=== PATIENT | male | born 1990 | race Caucasian/White ===

== ENCOUNTER 2016-07-02 04:33 | Emergency (ER) | payer OTHER ==
[~2016-07-02] VITALS: Ht 172.7 cm; Wt 74.8 kg
[~2016-07-02 04:33] MED LIST: ACYCLOVIR800 MG PO; AMOXICILLIN500 MG PO; ANAPROX DS550 MG PO; AUGMENTIN 875875 MG PO; CLARITIN10 MG PO; CLEOCIN150 MG PO; CYCLOBENZAPRINE10 MG PO; DARVOCET N 1001 TAB PO; DOXYCYCLINE MO100 MG PO; EES400 MG PO; FLEXERIL10 MG PO; HYDROCODONE BIT1 T11 PO; KEFLEX500 MG PO; LOMOTIL 0.025 M1 TA1 PO; MEDROL DOSEPAK4 MG PO; MOTRIN800 MG PO; Motrin,Rufen800 MG PO; NAPROSYN500 MG PO; NKHM; NORCO 5-325 TA1 EACH PO; PEN-VEE K500 MG PO; PENICILLIN VK500 MG PO; PEPCID20 MG PO; ROBAXIN750 MG PO; SEPTRA DS 800 M1 TAB PO; SUBOXONE 8 MG-1 EACH SL; TYLENOL325 M1 PO; ULTRAM50 MG PO; VALTREX500 MG PO; VICODIN 500 MG-1 TAB PO; VOLTAREN50 M1 PO
[2016-07-02] MEDS ORDERED: Motrin,Rufen800 MG PO (06:10)
[2016-07-02] MEDS ORDERED: ZOFRAN ODT4 MG SL (06:10)
[2016-07-02 06:28] VITALS: BP 118/74
== END 2016-07-02 06:36 | disposition home or self-care (01) ==
LOC: ED 04:33
DX: G43.919 Migraine, unspecified, intractable, without status migrainosus (principal); F17.200 Nicotine dependence, unspecified, uncomplicated

== ENCOUNTER → 2016-07-23 | Outpatient (CLI) | payer OTHER ==
[~2016-07-23] MED LIST changes: +ZOFRAN ODT4 MG SL
[2016-07-23 15:11] LABS: BASO % 0.3 % (0.0-1.0); EOS # 0.1 10*3/uL (0.0-0.4); EOS % 0.9 % (1.0-4.0); HEMATOCRIT 41.3 % (42.0-52.0); HEMOGLOBIN 14.2 g/dl (14.0-18.0); LYMPH # 3.3 10*3/uL (1.3-4.4); LYMPH % 30.8 % (27.0-41.0); MEAN CELL VOLUME 85.3 fl (80.0-94.0); MEAN CORPUSCULAR HGB 29.3 pg (27.0-31.0); MEAN CORPUSCULAR HGB CONC 34.4 g/dl (33.0-37.0); MEAN PLATELET VOLUME 10.1 fl (9.6-12.3); MONO # 0.6 10*3/uL (0.1-1.0); MONO % 5.4 % (3.0-9.0); NEUT # 6.6 10*3/uL (2.3-7.9); NEUT % 62.3 % (47.0-73.0); PLATELET COUNT AUTOMATED 201 10*3/uL (130-400); RED BLOOD COUNT 4.84 10*6/uL (4.50-5.90); WHITE BLOOD COUNT 10.7 10*3/uL (4.8-10.8)
[2016-07-23 15:27] LABS: HEMOGLOBIN A1c 5.5 % (4.8-5.6)
[2016-07-23 15:44] LABS: ALBUMIN 4.1 gm/dl (3.1-4.5); ALKALINE PHOSPHATASE 72 U/L (45-117); BILIRUBIN, TOTAL 0.3 mg/dl (0.2-1.0); BUN 16 mg/dl (7-24); CARBON DIOXIDE 29 mmol/L (21-32); CHLORIDE 109 mmol/L (98-107); CHOLESTEROL 180 mg/dL (<200); CPK 141 U/L (39-308); EST GLOM FILT AFRICAN AMERICAN > 60 ml/min; GLUCOSE 124 mg/dL (65-99); HDL CHOLESTEROL 49 mg/dl (40-60); LDL CHOLESTEROL 86 mg/dL (9-159); POTASSIUM 4.2 mmol/L (3.5-5.1); SGOT/AST 27 IU/L (3-35); SGPT/ALT 31 U/L (12-78); SODIUM 142 mmol/L (136-145); TOTAL PROTEIN 7.4 gm/dL (6.4-8.2); TRIGLYCERIDES 226 mg/dl (<150); VLDL CHOLESTEROL 45 mg/dL (6-40)
[2016-07-24 17:11] LABS: CREATININE, RANDOM URINE 280.3 mg/dL (Not Estab.)
[2016-07-26 06:36] LABS: METANEPH-CREAT RATIO 0.4 (0.0-1.0)
== END | disposition home or self-care (01) ==
LOC: LAB 14:31
PROVIDERS: Pediatrics
DX: I10 Essential (primary) hypertension (principal)

== ENCOUNTER 2016-09-14 17:05 | Inpatient (IN) | payer OTHER ==
[~2016-09-14] VITALS: Ht 172.7 cm; Wt 79.0 kg
[2016-09-14] MEDS ORDERED: LISINOPRIL10 M1 PO (18:34)
[2016-09-14 18:37] VITALS: BP 125/71
[2016-09-14 19:07] LABS: BASO % 0.2 % (0.0-1.0); EOS # 0.2 10*3/uL (0.0-0.4); EOS % 1.8 % (1.0-4.0); HEMATOCRIT 41.8 % (42.0-52.0); HEMOGLOBIN 14.2 g/dl (14.0-18.0); LYMPH % 45.3 % (27.0-41.0); MEAN CELL VOLUME 85.1 fl (80.0-94.0); MEAN CORPUSCULAR HGB 28.9 pg (27.0-31.0); MEAN PLATELET VOLUME 10.1 fl (9.6-12.3); MONO # 0.6 10*3/uL (0.1-1.0); MONO % 5.3 % (3.0-9.0); NEUT # 5.2 10*3/uL (2.3-7.9); NEUT % 47.1 % (47.0-73.0); PLATELET COUNT AUTOMATED 181 10*3/uL (130-400); RED BLOOD COUNT 4.91 10*6/uL (4.50-5.90); RED CELL DISTRI WIDTH 12.9 % (0-14.5)
[2016-09-14 19:08] LABS: URINE AMPHETAMINES < 1000 (1000ng/ml); URINE BARBITURATES < 200 (200ng/ml); URINE COCAINE > 300 (300ng/ml)
[2016-09-14 19:10] LABS: BILIRUBIN NEGATIVE (NEGATIVE); BLOOD NEGATIVE (NEGATIVE); CLARITY CLEAR (CLEAR); COLOR YELLOW (YELLOW); GLUCOSE NEGATIVE (NEGATIVE); KETONE NEGATIVE (NEGATIVE); LEUKO ESTERASE NEGATIVE (NEGATIVE); NITRITE NEGATIVE (NEGATIVE); PH 5.5 (5.0-9.0); PROTEIN NEGATIVE (NEGATIVE); SPECIFIC GRAVITY <= 1.005 (1.005-1.030); UROBILINOGEN 0.2 E.U./dl (0.2-1.0)
[2016-09-14 19:19] LABS: BACTERIA TRACE; EPITHELIAL CELLS 0-2; RBC 0-2 rbc/hpf (0-2); URINE REFLEX COMMENT NO (NO); WBC 0-2 wbc/hpf (0-5)
[2016-09-14 19:24] LABS: BILIRUBIN, TOTAL 0.1 mg/dl (0.2-1.0); BUN 8 mg/dl (7-24); CARBON DIOXIDE 27 mmol/L (21-32); CHLORIDE 103 mmol/L (98-107); EST GLOM FILT AFRICAN AMERICAN > 60 ml/min; GLUCOSE 116 mg/dL (65-99); POTASSIUM 3.8 mmol/L (3.5-5.1); SGOT/AST 25 IU/L (3-35); SGPT/ALT 28 U/L (12-78); SODIUM 141 mmol/L (136-145); TOTAL PROTEIN 7.3 gm/dL (6.4-8.2)
[2016-09-14 19:30] LABS: ALKALINE PHOSPHATASE 76 U/L (45-117)
[2016-09-14 20:15] VITALS: BP 137/71
[2016-09-14] MEDS ORDERED: IBU800 MG PO (20:59)
[2016-09-15] VITALS: BP 120/77
[2016-09-15 08:00] VITALS: BP 111/67
== END 2016-09-15 11:47 | disposition home or self-care (01) | DRG 897 ==
LOC: ED 17:05 → 4E 19:20 → EDHOLD 19:20 → 4E 19:43
PROVIDERS: Nurse Practitioner Family
DX: F11.23 Opioid dependence with withdrawal (principal); I10 Essential (primary) hypertension; G25.81 Restless legs syndrome; E78.5 Hyperlipidemia, unspecified; F41.9 Anxiety disorder, unspecified; F17.210 Nicotine dependence, cigarettes, uncomplicated; D72.829 Elevated white blood cell count, unspecified; R73.9 Hyperglycemia, unspecified; F14.10 Cocaine abuse, uncomplicated; F15.10 Other stimulant abuse, uncomplicated; F13.230 Sedative, hypnotic or anxiolytic dependence with withdrawal, uncomplicated; Z82.5 Family history of asthma and other chronic lower respiratory diseases; Z71.6 Tobacco abuse counseling

== ENCOUNTER 2016-10-05 17:02 | Emergency (ER) | payer OTHER ==
[~2016-10-05] VITALS: Wt 77.1 kg
[~2016-10-05 17:02] MED LIST changes: +IBU800 MG PO; +LISINOPRIL10 M1 PO
[2016-10-05 17:59] LABS: BASO % 0.3 % (0.0-1.0); EOS # 0.1 10*3/uL (0.0-0.4); EOS % 0.9 % (1.0-4.0); HEMATOCRIT 40.1 % (42.0-52.0); HEMOGLOBIN 13.4 g/dl (14.0-18.0); LYMPH # 3.4 10*3/uL (1.3-4.4); LYMPH % 36.8 % (27.0-41.0); MEAN CELL VOLUME 87.4 fl (80.0-94.0); MEAN CORPUSCULAR HGB 29.2 pg (27.0-31.0); MEAN CORPUSCULAR HGB CONC 33.4 g/dl (33.0-37.0); MEAN PLATELET VOLUME 9.9 fl (9.6-12.3); MONO # 0.5 10*3/uL (0.1-1.0); MONO % 5.3 % (3.0-9.0); NEUT # 5.3 10*3/uL (2.3-7.9); NEUT % 56.4 % (47.0-73.0); PLATELET COUNT AUTOMATED 192 10*3/uL (130-400); RED BLOOD COUNT 4.59 10*6/uL (4.50-5.90); RED CELL DISTRI WIDTH 13.1 % (0-14.5); WHITE BLOOD COUNT 9.3 10*3/uL (4.8-10.8)
[2016-10-05 18:08] LABS: INTERNATIONAL NORM RATIO 1.1 (2.0-3.5); PROTHROMBIN TIME 11.6 SECONDS (9.0-12.4)
[2016-10-05 18:14] LABS: ALBUMIN 3.3 gm/dl (3.1-4.5); ALKALINE PHOSPHATASE 60 U/L (45-117); BILIRUBIN, TOTAL 0.2 mg/dl (0.2-1.0); BUN 10 mg/dl (7-24); CARBON DIOXIDE 26 mmol/L (21-32); CHLORIDE 108 mmol/L (98-107); CKMB 0.7 ng/ml (0.5-3.6); CPK 102 U/L (39-308); EST GLOM FILT AFRICAN AMERICAN > 60 ml/min; GLUCOSE 117 mg/dL (65-99); POTASSIUM 3.7 mmol/L (3.5-5.1); SGOT/AST 18 IU/L (3-35); SGPT/ALT 24 U/L (12-78); SODIUM 139 mmol/L (136-145); TOTAL PROTEIN 6.4 gm/dL (6.4-8.2)
[2016-10-05 18:16] LABS: C-REACTIVE PROTEIN < 0.29 MG/DL (0-0.3); TROPONIN I < 0.015 ng/ml (<0.045)
[2016-10-05 19:54] VITALS: BP 113/65
[2016-10-05] MEDS ORDERED: KETOROLAC10 MG PO (20:09)
== END 2016-10-05 20:26 | disposition home or self-care (01) ==
LOC: ED 17:02
PROVIDERS: Emergency Medicine
DX: S20.211A Contusion of right front wall of thorax, initial encounter (principal); S00.03XA Contusion of scalp, initial encounter; I10 Essential (primary) hypertension; E78.5 Hyperlipidemia, unspecified; F12.10 Cannabis abuse, uncomplicated; F11.10 Opioid abuse, uncomplicated; Z87.891 Personal history of nicotine dependence; W20.8XXA Other cause of strike by thrown, projected or falling object, initial encounter; Y93.89 Activity, other specified; Y92.810 Car as the place of occurrence of the external cause; Y99.8 Other external cause status

== ENCOUNTER 2016-11-09 00:09 | Emergency (ER) | payer OTHER ==
[~2016-11-09] VITALS: Ht 167.6 cm; Wt 72.6 kg
[~2016-11-09 00:09] MED LIST changes: +KETOROLAC10 MG PO
[2016-11-09 00:31] LABS: BASO % 0.3 % (0.0-1.0); EOS # 0.1 10*3/uL (0.0-0.4); HEMATOCRIT 39.8 % (42.0-52.0); HEMOGLOBIN 13.3 g/dl (14.0-18.0); LYMPH # 4.2 10*3/uL (1.3-4.4); LYMPH % 39.5 % (27.0-41.0); MEAN CELL VOLUME 85.4 fl (80.0-94.0); MEAN CORPUSCULAR HGB 28.5 pg (27.0-31.0); MEAN CORPUSCULAR HGB CONC 33.4 g/dl (33.0-37.0); MEAN PLATELET VOLUME 9.4 fl (9.6-12.3); MONO # 0.5 10*3/uL (0.1-1.0); MONO % 4.9 % (3.0-9.0); NEUT # 5.7 10*3/uL (2.3-7.9); NEUT % 54.1 % (47.0-73.0); PLATELET COUNT AUTOMATED 203 10*3/uL (130-400); RED BLOOD COUNT 4.66 10*6/uL (4.50-5.90); RED CELL DISTRI WIDTH 12.5 % (0-14.5); WHITE BLOOD COUNT 10.6 10*3/uL (4.8-10.8)
[2016-11-09 00:47] LABS: ALBUMIN 3.6 gm/dl (3.1-4.5); ALKALINE PHOSPHATASE 74 U/L (45-117); BUN 10 mg/dl (7-24); CHLORIDE 106 mmol/L (98-107); CREATININE 0.85 mg/dL (0.70-1.30); SGOT/AST 26 IU/L (3-35); SGPT/ALT 24 U/L (12-78); SODIUM 139 mmol/L (136-145)
[2016-11-09 00:49] LABS: ACETAMINOPHEN (TYLENOL) < 2.0 ug/ml (10-30); ETHYL ALCOHOL < 3.0 mg/dl (<3)
[2016-11-09 01:01] LABS: BILIRUBIN NEGATIVE (NEGATIVE); BLOOD NEGATIVE (NEGATIVE); CLARITY CLEAR (CLEAR); COLOR YELLOW (YELLOW); GLUCOSE NEGATIVE (NEGATIVE); KETONE NEGATIVE (NEGATIVE); LEUKO ESTERASE NEGATIVE (NEGATIVE); NITRITE NEGATIVE (NEGATIVE); PH 5.5 (5.0-9.0); UROBILINOGEN 0.2 E.U./dl (0.2-1.0)
[2016-11-09 01:10] LABS: EPITHELIAL CELLS 0-5; RBC 0-2 rbc/hpf (0-2)
[2016-11-09 01:11] LABS: URINE AMPHETAMINES < 1000 (1000ng/ml); URINE BARBITURATES < 200 (200ng/ml); URINE BENZODIAZEPINES < 200 (200ng/ml); URINE CANNABINOIDS (THC) < 50 (50ng/ml); URINE COCAINE < 300 (300ng/ml); URINE METHADONE < 300 (300ng/ml); URINE OPIATES < 300 (300ng/ml); URINE PHENCYCLIDINE < 25 (25ng/ml)
[2016-11-10 15:45] VITALS: BP 115/72
== END 2016-11-10 16:06 | disposition home or self-care (01) ==
LOC: ED 00:09
PROVIDERS: Student in an Organized Health Care Education/Training Program
DX: S51.812A Laceration without foreign body of left forearm, initial encounter (principal); R45.851 Suicidal ideations; R51 Headache; I10 Essential (primary) hypertension; F14.10 Cocaine abuse, uncomplicated; E78.5 Hyperlipidemia, unspecified; X58.XXXA Exposure to other specified factors, initial encounter; Y93.9 Activity, unspecified; Y92.9 Unspecified place or not applicable; Y99.9 Unspecified external cause status

== ENCOUNTER 2017-06-11 15:44 | Inpatient (IN) | payer OTHER ==
[~2017-06-11] VITALS: Ht 172.7 cm; Wt 76.8 kg
[2017-06-11 15:50] VITALS: BP 128/85
[2017-06-11] MEDS ORDERED: BUPREN/NALOX SUB 8-2 (15:52)
[2017-06-11 16:04] LABS: BILIRUBIN NEGATIVE (NEGATIVE); BLOOD NEGATIVE (NEGATIVE); CLARITY CLOUDY (CLEAR); COLOR YELLOW (YELLOW); GLUCOSE NEGATIVE (NEGATIVE); KETONE 1+ (NEGATIVE); LEUKO ESTERASE NEGATIVE (NEGATIVE); NITRITE NEGATIVE (NEGATIVE); PH 8.5 (5.0-9.0); UROBILINOGEN 0.2 E.U./dl (0.2-1.0)
[2017-06-11 16:16] LABS: BACTERIA 2+
[2017-06-11 16:19] LABS: URINE AMPHETAMINES > 1000 (1000ng/ml); URINE BARBITURATES > 200 (200ng/ml); URINE BENZODIAZEPINES < 200 (200ng/ml); URINE CANNABINOIDS (THC) < 50 (50ng/ml); URINE COCAINE > 300 (300ng/ml); URINE METHADONE < 300 (300ng/ml); URINE OPIATES > 300 (300ng/ml); URINE PHENCYCLIDINE < 25 (25ng/ml)
[2017-06-11 17:10] VITALS: BP 122/74
[2017-06-11 17:12] LABS: BASO % 0.2 % (0.0-1.0); EOS % 0.2 % (1.0-4.0); HEMATOCRIT 45.1 % (42.0-52.0); HEMOGLOBIN 15.2 g/dl (14.0-18.0); LYMPH # 1.9 10*3/uL (1.3-4.4); LYMPH % 17.7 % (27.0-41.0); MEAN CELL VOLUME 83.7 fl (80.0-94.0); MEAN CORPUSCULAR HGB 28.2 pg (27.0-31.0); MEAN CORPUSCULAR HGB CONC 33.7 g/dl (33.0-37.0); MEAN PLATELET VOLUME 9.9 fl (9.6-12.3); MONO # 0.3 10*3/uL (0.1-1.0); MONO % 2.4 % (3.0-9.0); NEUT # 8.4 10*3/uL (2.3-7.9); NEUT % 79.1 % (47.0-73.0); PLATELET COUNT AUTOMATED 227 10*3/uL (130-400); RED BLOOD COUNT 5.39 10*6/uL (4.50-5.90); RED CELL DISTRI WIDTH 13.1 % (0-14.5); WHITE BLOOD COUNT 10.6 10*3/uL (4.8-10.8)
[2017-06-11 17:29] LABS: INTERNATIONAL NORM RATIO 1.1 (2.0-3.5)
[2017-06-11 17:33] LABS: ALKALINE PHOSPHATASE 71 U/L (45-117); BUN 8 mg/dl (7-24); CHLORIDE 107 mmol/L (98-107); POTASSIUM 3.4 mmol/L (3.5-5.1); SGOT/AST 23 IU/L (3-35); SGPT/ALT 30 U/L (12-78); SODIUM 140 mmol/L (136-145); TOTAL PROTEIN 7.8 gm/dL (6.4-8.2)
[2017-06-11 17:35] LABS: ACETAMINOPHEN (TYLENOL) < 2.0 ug/ml (10-30); ETHYL ALCOHOL < 3.0 mg/dl (<3); TROPONIN I < 0.015 ng/ml (<0.045)
[2017-06-11 17:46] VITALS: BP 130/76
[2017-06-11 20:00] VITALS: BP 119/65
[2017-06-12] VITALS: BP 115/60
[2017-06-12 04:00] VITALS: BP 115/60
[2017-06-12 08:00] VITALS: BP 111/54
[2017-06-12 12:00] VITALS: BP 101/53
[2017-06-12 16:00] VITALS: BP 110/52
[2017-06-12 20:00] VITALS: BP 118/52
[2017-06-13] VITALS: BP 103/52
[2017-06-13 08:00] VITALS: BP 110/58
[2017-06-13 12:00] VITALS: BP 116/76
== END 2017-06-13 15:28 | disposition left against medical advice (07) | DRG 894 ==
LOC: ED 15:44 → EDHOLD 16:50 → 5E 17:20
PROVIDERS: Physician Assistant; Student in an Organized Health Care Education/Training Program
DX: F11.23 Opioid dependence with withdrawal (principal); E83.41 Hypermagnesemia; E78.5 Hyperlipidemia, unspecified; E87.6 Hypokalemia; F13.10 Sedative, hypnotic or anxiolytic abuse, uncomplicated; F14.10 Cocaine abuse, uncomplicated; F15.10 Other stimulant abuse, uncomplicated; R73.9 Hyperglycemia, unspecified; I10 Essential (primary) hypertension; D72.810 Lymphocytopenia; Z72.0 Tobacco use; Z71.6 Tobacco abuse counseling; Z82.5 Family history of asthma and other chronic lower respiratory diseases; Z81.8 Family history of other mental and behavioral disorders

== ENCOUNTER 2017-11-06 18:46 | Emergency (ER) | payer OTHER ==
[~2017-11-06] VITALS: Ht 172.7 cm; Wt 73.5 kg
[~2017-11-06 18:46] MED LIST changes: +BUPREN/NALOX SUB 8-2
[2017-11-06 18:47] VITALS: BP 127/80
[2017-11-06] MEDS ORDERED: NAPROSYN500 MG PO (19:01)
[2017-11-06] MEDS ORDERED: Tobrex Ophth S2.5 ML OPH (19:01)
[2017-11-18] MEDS ORDERED: TESSALON PERLE100 M1 PO (19:06)
[2017-11-18] MEDS ORDERED: PREDNISONE20 M1 PO (19:06)
[2017-11-18] MEDS ORDERED: AUGMENTIN 875875 MG PO (19:06)
== END 2017-11-06 19:27 | disposition home or self-care (01) ==
LOC: ED 18:46
DX: S05.01XA Injury of conjunctiva and corneal abrasion without foreign body, right eye, initial encounter (principal); R03.0 Elevated blood-pressure reading, without diagnosis of hypertension; F17.200 Nicotine dependence, unspecified, uncomplicated; X58.XXXA Exposure to other specified factors, initial encounter; Y93.89 Activity, other specified; Y92.89 Other specified places as the place of occurrence of the external cause; Y99.9 Unspecified external cause status

== ENCOUNTER 2017-11-23 23:13 | Emergency (ER) | payer OTHER ==
[~2017-11-23] VITALS: Ht 172.7 cm; Wt 72.6 kg
[~2017-11-23 23:13] MED LIST changes: +PREDNISONE20 M1 PO; +TESSALON PERLE100 M1 PO; +Tobrex Ophth S2.5 ML OPH
[2017-11-23 23:14] VITALS: BP 127/73
== END 2017-11-24 01:17 | disposition home or self-care (01) ==
LOC: ED 23:13
DX: S20.212A Contusion of left front wall of thorax, initial encounter (principal); E78.5 Hyperlipidemia, unspecified; I10 Essential (primary) hypertension; X58.XXXA Exposure to other specified factors, initial encounter; Y93.89 Activity, other specified; Y92.89 Other specified places as the place of occurrence of the external cause; Y99.8 Other external cause status

== ENCOUNTER 2018-09-08 20:05 | Emergency (ER) | payer OTHER ==
[~2018-09-08] VITALS: Ht 172.7 cm; Wt 78.0 kg
[2018-09-08 20:07] VITALS: BP 135/92
[2018-09-08] MEDS ORDERED: SEPTDS PO (20:19)
[2018-09-08] MEDS ORDERED: CEPHALEXIN500 M1 PO (20:19)
== END 2018-09-08 20:43 | disposition home or self-care (01) ==
LOC: ED 20:05
DX: L02.414 Cutaneous abscess of left upper limb (principal); F17.200 Nicotine dependence, unspecified, uncomplicated

== ENCOUNTER 2018-10-20 02:12 | Emergency (ER) | payer SELFPAY ==
[~2018-10-20] VITALS: Ht 172.7 cm; Wt 74.8 kg
[~2018-10-20 02:12] MED LIST changes: +CEPHALEXIN500 M1 PO; +SEPTDS PO
[2018-10-20 02:47] VITALS: BP 98/57
== END 2018-10-20 04:00 | disposition home or self-care (01) ==
LOC: ED 02:12
DX: G43.709 Chronic migraine without aura, not intractable, without status migrainosus (principal); I10 Essential (primary) hypertension; E78.5 Hyperlipidemia, unspecified; F17.200 Nicotine dependence, unspecified, uncomplicated; Z79.2 Long term (current) use of antibiotics

== ENCOUNTER 2019-01-02 08:19 | Emergency (ER) | payer OTHER ==
[~2019-01-02] VITALS: Ht 172.7 cm; Wt 72.6 kg
[2019-01-02 08:21] VITALS: BP 151/109
== END 2019-01-02 09:18 | disposition home or self-care (01) ==
LOC: ED 08:19
DX: K04.7 Periapical abscess without sinus (principal); E78.5 Hyperlipidemia, unspecified; I10 Essential (primary) hypertension; F17.200 Nicotine dependence, unspecified, uncomplicated; Z79.2 Long term (current) use of antibiotics

== ENCOUNTER 2019-01-25 01:35 | Emergency (ER) | payer OTHER ==
[~2019-01-25] VITALS: Ht 170.1 cm; Wt 73.5 kg
[2019-01-25 01:36] VITALS: BP 149/90
[2019-01-25] MEDS ORDERED: NAPROSYN EC375 MG PO (03:02)
== END 2019-01-25 03:50 | disposition home or self-care (01) ==
LOC: ED 01:35
DX: S96.911A Strain of unspecified muscle and tendon at ankle and foot level, right foot, initial encounter (principal); E78.5 Hyperlipidemia, unspecified; I10 Essential (primary) hypertension; G43.909 Migraine, unspecified, not intractable, without status migrainosus; F17.200 Nicotine dependence, unspecified, uncomplicated; X50.1XXA Overexertion from prolonged static or awkward postures, initial encounter; Y93.39 Activity, other involving climbing, rappelling and jumping off; Y92.098 Other place in other non-institutional residence as the place of occurrence of the external cause; Y99.8 Other external cause status

== ENCOUNTER 2019-08-09 10:31 | Emergency (ER) | payer OTHER ==
[~2019-08-09] VITALS: Ht 172.7 cm; Wt 72.6 kg
[~2019-08-09 10:31] MED LIST changes: +NAPROSYN EC375 MG PO
[2019-08-09 10:35] VITALS: BP 114/69
[2019-08-09] MEDS ORDERED: Tobrex Ophth S2.5 ML OPH (11:00)
[2019-08-09] MEDS ORDERED: IBUPROFEN600 MG PO (11:00)
== END 2019-08-09 11:12 | disposition home or self-care (01) ==
LOC: ED 10:31
DX: H16.9 Unspecified keratitis (principal); F32.9 Major depressive disorder, single episode, unspecified; I10 Essential (primary) hypertension; Z79.899 Other long term (current) drug therapy

== ENCOUNTER 2019-10-06 05:08 | Emergency (ER) | payer OTHER ==
[~2019-10-06] VITALS: Ht 172.7 cm; Wt 75.7 kg
[~2019-10-06 05:08] MED LIST changes: +IBUPROFEN600 MG PO
[2019-10-06 05:59] LABS: BASO % 0.3 % (0.0-1.0); EOS # 0.2 10*3/uL (0.0-0.4); EOS % 1.7 % (1.0-4.0); HEMATOCRIT 46.9 % (42.0-52.0); LYMPH % 25.9 % (27.0-41.0); MEAN CORPUSCULAR HGB 28.1 pg (27.0-31.0); MEAN PLATELET VOLUME 9.8 fl (9.6-12.3); MONO # 0.8 10*3/uL (0.1-1.0); NEUT # 7.5 10*3/uL (2.3-7.9); NEUT % 64.8 % (47.0-73.0); PLATELET COUNT AUTOMATED 290 10*3/uL (130-400); RED BLOOD COUNT 5.52 10*6/uL (4.50-5.90); RED CELL DISTRI WIDTH 12.6 % (0-14.5); WHITE BLOOD COUNT 11.5 10*3/uL (4.8-10.8)
[2019-10-06 06:02] LABS: ALKALINE PHOSPHATASE 88 U/L (45-117); BUN 16 mg/dl (7-24); CHLORIDE 105 mmol/L (98-107); CPK 59 U/L (39-308); CREATININE 0.88 mg/dL (0.70-1.30); POTASSIUM 3.9 mmol/L (3.5-5.1); SGOT/AST 20 IU/L (3-35); SGPT/ALT 41 U/L (12-78); SODIUM 136 mmol/L (136-145); TOTAL PROTEIN 8.2 gm/dL (6.4-8.2)
[2019-10-06 06:05] LABS: TROPONIN I < 0.015 ng/ml (<0.045)
[2019-10-06 06:26] VITALS: BP 132/96
== END 2019-10-06 06:47 ==
LOC: ED 05:08
PROVIDERS: Emergency Medicine
DX: R55 Syncope and collapse (principal); R42 Dizziness and giddiness; E86.0 Dehydration; F17.200 Nicotine dependence, unspecified, uncomplicated

== ENCOUNTER 2020-02-12 17:04 | Emergency (ER) | payer OTHER ==
[~2020-02-12] VITALS: Ht 172.7 cm; Wt 77.1 kg
[2020-02-12 17:09] VITALS: BP 140/68
[2020-02-12 19:16] LABS: BASO % 0.3 % (0.0-1.0); EOS # 0.1 10*3/uL (0.0-0.4); EOS % 0.8 % (1.0-4.0); HEMATOCRIT 41.2 % (42.0-52.0); LYMPH # 2.1 10*3/uL (1.3-4.4); LYMPH % 21.7 % (27.0-41.0); MEAN CELL VOLUME 84.1 fl (80.0-94.0); MEAN CORPUSCULAR HGB 27.3 pg (27.0-31.0); MEAN CORPUSCULAR HGB CONC 32.5 g/dl (33.0-37.0); MEAN PLATELET VOLUME 9.5 fl (9.6-12.3); MONO # 0.8 10*3/uL (0.1-1.0); MONO % 8.5 % (3.0-9.0); NEUT # 6.7 10*3/uL (2.3-7.9); NEUT % 68.3 % (47.0-73.0); PLATELET COUNT AUTOMATED 233 10*3/uL (130-400); RED CELL DISTRI WIDTH 13.4 % (0-14.5); WHITE BLOOD COUNT 9.8 10*3/uL (4.8-10.8)
[2020-02-12 19:31] LABS: ALBUMIN 3.4 gm/dl (3.1-4.5); ALKALINE PHOSPHATASE 89 U/L (45-117); BUN 9 mg/dl (7-24); CHLORIDE 103 mmol/L (98-107); CREATININE 0.73 mg/dL (0.70-1.30); POTASSIUM 3.7 mmol/L (3.5-5.1); SGOT/AST 34 IU/L (3-35); SGPT/ALT 67 U/L (12-78); SODIUM 137 mmol/L (136-145); TOTAL PROTEIN 7.3 gm/dL (6.4-8.2)
[2020-02-12] MEDS ORDERED: CEPHALEXIN500 M1 PO (19:57)
== END 2020-02-12 20:11 | disposition home or self-care (01) ==
LOC: ED 17:04
PROVIDERS: Nurse Practitioner Family
DX: L03.115 Cellulitis of right lower limb (principal); F32.9 Major depressive disorder, single episode, unspecified; I10 Essential (primary) hypertension; Z79.899 Other long term (current) drug therapy; Z79.2 Long term (current) use of antibiotics; Z87.891 Personal history of nicotine dependence

== ENCOUNTER 2020-12-31 17:16 | Emergency (ER) | payer OTHER ==
[~2020-12-31] VITALS: Ht 172.7 cm; Wt 72.6 kg
[2020-12-31 17:32] VITALS: BP 123/76
== END 2020-12-31 17:51 | disposition home or self-care (01) ==
LOC: ED 17:16
DX: S09.21XA Traumatic rupture of right ear drum, initial encounter (principal); F17.200 Nicotine dependence, unspecified, uncomplicated; W22.8XXA Striking against or struck by other objects, initial encounter; Y93.89 Activity, other specified; Y92.89 Other specified places as the place of occurrence of the external cause; Y99.8 Other external cause status